=== PATIENT | male | born 1945 | race Caucasian/White ===

== ENCOUNTER 2021-07-17 12:00 | Observation (INO) | payer MEDICARE, OTHER, SELFPAY ==
[2021-07-17] VITALS (13 sets, daily range): BP systolic 130–169; BP diastolic 73–91; PULSE 60–98; RESP 15–21; TEMP 36.5–36.9; O2SAT 94–99; BMI 31.8
--- NOTE | 2021-07-17 12:20 | ED_ITS ---
HPI - Chest Pain General: Chief Complaint: Chest Pain Stated Complaint: Chest Pains SOB Time Seen by Provider: 07/17/21 12:20 History of Present Illness: Mr. Veloz is a 76-year-old gentleman with history of hypertension who presents to the emergency department due to chest discomfort. He reports being at his baseline health with perhaps few intermittent episodes of chest pressure over the past few days. He denies history of similar. Proximately 30 minutes prior to arrival he had sudden onset at rest of pressure in the middle of his chest. There is radiation towards his head and a tingling sensation in bilateral fingertips and what he describes as a numbness in his bilateral lower face. There is radiation of his pain additionally through to his back. Since onset symptoms have persisted. No other specific typical cardiac features. No other specific changes in health, exacerbating, or alleviating factors identified. Onset (ago): minute(s) Timing of current episode: constant Prior episodes: No Onset: during rest Pain location: substernal Pain radiation: back and jaw/teeth Severity: moderate Quality: tightness and heaviness Treatment prior to arrival: none Review of Systems General: Reports: 10 or more systems reviewed and unremarkable except in HPI and below PFSH ED PFSH: Medical History (Updated 07/19/21 @ 00:01 by ) HTN (hypertension) Hypothyroidism Surgical History No significant past surgical history Family History Denies family history of Family history of premature coronary artery disease Physical Exam Const: COMMON NORMALS: patient oriented x3 and alert GENERAL APPEARANCE: cooperative and well developed HENMT: COMMON NORMALS: normocephalic and atraumatic HEAD & SCALP: normocephalic and atraumatic Eye: COMMON NORMALS: conjunctivae normal CONJUNCTIVA: Yes conjunctivae normal SCLERA: sclerae normal Neck/C-Spine: COMMON NORMALS: supple GENERAL: Yes trachea midline Resp: COMMON NORMALS: normal respiratory effort and clear to auscultation bilaterally EFFORT & INSPECTION: Yes able to speak in complete sentences AUSCULTATION: clear to auscultation bilaterally Cardio: COMMON NORMALS: regular rate and regular rhythm RATE: regular rate RHYTHM: regular rhythm GI: COMMON NORMALS: Soft to palpation PALPATION: Yes Soft to palpation and No Tenderness to palpation present (GI) PERCUSSION: normal to percussion Extremity: GENERAL: Yes normal exam except as noted and No edema Neuro: COMMON NORMALS: patient oriented x3, CN's II-XII intact bilaterally, moves all extremities, no focal motor deficits and no sensory deficits noted SENSORIUM/ORIENTATION: Yes alert and No Orientation impaired Psych: COMMON NORMALS: mental status grossly normal and Normal thought process present THOUGHT PROCESS: Normal thought process present Course ED course: - Patient was seen and evaluated by me at bedside - Patient placed on cardiac monitors, IV access obtained - Initial evaluation notable for exam as above - Labs and xrays personally interpreted by me -Aspirin given - Labs notable for leukocytosis, normal hemoglobin. Negative troponin and D- dimer. No acute electrolyte abnormalities symptoms. - Imaging notable for consolidation or pneumothorax - Upon serial reexamination after treatment the patient was similar - Based on patient history, evaluation, and testing as interpreted the most likely cause of the patient's condition is chest pain of uncertain etiology with elevated heart score - The results of ED evaluation were discussed with the patient including possible disposition options. Given moderate risk heart score it is reasonable to perform inpatient stress testing which the patient is more comfortable with as opposed to outpatient follow-up. - Hospitalist service contacted and agreed to the patient to observation for further cardiac evaluation. - Patient was admitted without further deterioration or significant events. Note: Click bubbles or prepopulated beck in note writing are used for assistance with data collection and billing and are inherently more limited than narrative and other text portions of this note. Please use narrative for additional clinical history and defer to narrative/free test for any case of contradictory information. If information appears in only free text or click bubble it should be considered present or absent as reported. Please contact note technical writer and editor for clarifications of clinical information or contradictory information. MDM is a brief summary, contradictory or erroneous seeming information should be clarified and full note should be reviewed. Vital Signs: Vital signs: Vital Signs Temperature 97.7 F 07/18/21 15:41 Pulse Rate 79 07/18/21 15:41 Respiratory Rate 14 07/18/21 15:41 Blood Pressure 137/66 07/18/21 15:41 Pulse Oximetry 99 07/18/21 15:41 MDM - Chest Pain Medical Decision Making 76-year-old gentleman who is moderate risk by HEART score presenting with chest pain. Patient does not typically get chest pain. Negative ED evaluation for any obvious cause. Discussed disposition options, patient uncomfortable with discharge. Admitted for stress testing. Medical Records I reviewed the patient's medical records. Lab Data I reviewed the patient's lab results. : 07/18/21 04:15 07/18/21 04:15 Radiology Impressions Chest X-Ray 07/17/21 12:29 IMPRESSION: No acute findings. Laboratory Results WBC 5.6 10^3/uL (4.0-10.0) 07/17/21 12:29 RBC 4.61 10^6/uL (4.1-5.3) 07/17/21 12:29 Hgb 14.6 g/dL (11.7-16.6) 07/17/21 12:29 Hct 42.9 % (42.0-52.0) 07/17/21 12: MCV 93.1 fl (80-94) 07/17/21 12: MCH 31.7 pg (28.0-34.0) 07/17/21 12:29 MCHC 34.0 g/dL (30.0-36.0) 07/17/21 12: RDW 13.8 % (12.1-15.1) 07/17/21 12:29 Plt Count 275 10^3/cmm (130-400) 07/17/21 12:29 MPV 9.5 fL (7.4-10.4) 07/17/21 12: Neut % (Auto) 47.1 % 07/17/21 12: Lymph % (Auto) 39.2 % 07/17/21 12:29 Lucas % (Auto) 11.1 % 07/17/21 12:29 Eos % (Auto) 2.0 % 07/17/21 12: Baso % (Auto) 0.4 % 07/17/21 12: Neut # (Auto) 2.65 10^3/uL (1.8-7.7) 07/17/21 12: Lymph # (Auto) 2.2 10^3/uL (0.8-4.8) 07/17/21 12:29 Lucas # (Auto) 0.6 10^3/uL (0.2-0.9) 07/17/21 12:29 Eos # (Auto) 0.1 10^3/uL (0.0-0.8) 07/17/21 12:29 Baso # (Auto) 0.0 10^3/uL (0.0-0.1) 07/17/21 12:29 Nucleated RBC % (auto) 0 % 07/17/21 12: Nucleated RBCs # 0.0 /100WBC 07/17/21 12:29 D-Dimer <= 0.27 ug/mIFEU (0-0.59) 07/17/21 13:10 Sodium 139 mmol/L (136-145) 07/17/21 12:29 Potassium 4.0 mmol/L (3.5-5.1) 07/17/21 12: Chloride 103 mmol/L (98-107) 07/17/21 12: Carbon Dioxide 23 mmol/L (22-29) 07/17/21 12:29 Anion Gap 17.0 (5-19) 07/17/21 12:29 BUN 16 mg/dL (8-23) 07/17/21 12:29 Creatinine 0.9 mg/dL (0.7-1.2) 07/17/21 12:29 GFR Calculation Not Reportable 07/17/21 12: Glucose 92 mg/dL (65-115) 07/17/21 12: Calculated Osmolality 289 mOsm/kg (285-295) 07/17/21 12:29 Calcium 9.5 mg/dL (8.5-10.5) 07/17/21 12: Iron 121 ug/dL (59-158) 07/17/21 12: TIBC 279 mcg/dl 07/17/21 12: % Saturation 43.3 % (20-50) 07/17/21 12:29 Unsat Iron Binding 158 ug/dL (112-347) 07/17/21 12:29 Total Bilirubin 0.7 mg/dL (0.15-1.2) 07/17/21 12:29 AST 16 U/L (0-40) 07/17/21 12:29 ALT 19 U/L (0-41) 07/17/21 12:29 Alkaline Phosphatase 84 IU/L (40-130) 07/17/21 12:29 Troponin T Baseline 8 ng/L (0-15) 07/17/21 12:29 Troponin T 120 Minute 8.86 ng/L (0-15) 07/17/21 14:23 Delta Troponin T 0.86 ABS# (0-10) 07/17/21 14:23 NT-Pro-B Natriuret Pep 32 pg/mL (0-450) 07/17/21 12:29 Total Protein 7.1 g/dL (6.6-8.7) 07/17/21 12:29 Albumin 4.6 g/dL (3.5-5.2) 07/17/21 12:29 Globulin 2.5 g/dL (1.3-4.6) 07/17/21 12:29 Lipase 30 U/L (13-60) 07/17/21 12:29 TSH 0.02 uIU/mL (0.27-4.20) L 07/17/21 12:29 Free T4 3.07 ng/dL (0.82-1.77) H 07/17/21 12:29 Free T3 5.2 PG/ML (2.0-4.4) H 07/17/21 12:29 Influenza Type A Ag Negative (Negative) 07/17/21 14:59 Influenza Type B Ag Negative (Negative) 07/17/21 14:59 SARS-CoV-2 Ag (Rapid) Negative (Negative) 07/17/21 14:59 EKG Data EKG 1: I personally reviewed and interpreted this EKG as follows: EKG interpretation date: 07/17/21 EKG interpretation time: 12:20 Interpretation: Twelve-lead EKG shows a regular rhythm at a rate of 84. AK interval 157, QRS duration 107, QTc 412. Normal axis. Interpretation: Sinus rhythm. Nonspecific ST segment abnormalities EKG 2: I personally reviewed and interpreted this EKG as follows: EKG interpretation date: 07/17/21 EKG interpretation time: 13:50 Interpretation: Twelve-lead EKG shows a regular rhythm at a rate of 68. AK interval 168, QRS duration 105, QTc 402. Normal axis. Interpretation: Sinus rhythm. Nonspecific ST segment abnormalities. 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
--- NOTE | 2021-07-17 12:29 | XRR_ITS ---
PROCEDURE INFORMATION: Exam: XR Chest Exam date and time: 07/17/2021 11:34 AM Age: 76 years old Clinical indication: Angina pectoris; Patient HX: Chest pain x 1 day transient dull ache, HX of prostate cancer TECHNIQUE: Imaging protocol: XR of the chest. Views: 1 view. COMPARISON: No relevant prior studies available. FINDINGS: Lungs: Unremarkable. No consolidation. Pleural spaces: Unremarkable. No pleural effusion. No pneumothorax. Heart/Mediastinum: Unremarkable. No cardiomegaly. Bones/joints: Unremarkable. XR/XR chest 1V portable [id number] IMPRESSION: No acute findings.
--- NOTE | 2021-07-17 12:29 | ECG_ITS ---
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 Measurements Intervals [place] Rate: 68 P: 39 DE: 168 QRS: 9 QRSD: 105 T: 15 QT: 384 QTc: 411 Interpretive Statements SINUS RHYTHM Compared to ECG 07/17/2021 12:09:46 No significant changes Electronically Signed On 07-17-2021 20:25:24 CDT by Shan Lira M.D. [email or web address] [email or web address] health.Compass-EOS/store/[id number]
[2021-07-17] MEDS: aspirin 81 mg Chew Tablet 324 MG PO (12:37)
[2021-07-17 12:45] LABS: Basophils % 0.4 %; Eosinophils # 0.1 10^3/uL (0.0-0.8); Hematocrit 42.9 % (42.0-52.0); Hemoglobin 14.6 g/dL (11.7-16.6); Lymphocytes # 2.2 10^3/uL (0.8-4.8); Lymphocytes % 39.2 %; Mean Corpuscular Hemoglobin 31.7 pg (28.0-34.0); Mean Corpuscular Volume 93.1 fl (80-94); Mean Platelet Volume 9.5 fL (7.4-10.4); Monocytes # 0.6 10^3/uL (0.2-0.9); Monocytes % 11.1 %; Neutrophils # 2.65 10^3/uL (1.8-7.7); Neutrophils % 47.1 %; Nucleated Red Blood Cells % 0 %; Platelet Count 275 10^3/cmm (130-400); Red Blood Count 4.61 10^6/uL (4.1-5.3); Red Cell Distribution Width 13.8 % (12.1-15.1); White Blood Count 5.6 10^3/uL (4.0-10.0)
[2021-07-17 13:21] LABS: Troponin(5th) Baseline 8 ng/L (0-15)
[2021-07-17 13:30] LABS: Alanine Aminotransferase 19 U/L (0-41); Albumin Level 4.6 g/dL (3.5-5.2); Alkaline Phosphatase 84 IU/L (40-130); Aspartate Amino Transferase 16 U/L (0-40); Blood Urea Nitrogen 16 mg/dL (8-23); Calcium 9.5 mg/dL (8.5-10.5); Carbon Dioxide 23 mmol/L (22-29); Chloride 103 mmol/L (98-107); Globulin 2.5 g/dL (1.3-4.6); Glucose 92 mg/dL (65-115); Lipase 30 U/L (13-60); NT Pro B Type Natriuretic Pept 32 pg/mL (0-450); Osmolality Calculated 289 mOsm/kg (285-295); Sodium 139 mmol/L (136-145); Total Bilirubin 0.7 mg/dL (0.15-1.2); Total Protein 7.1 g/dL (6.6-8.7)
[2021-07-17 13:48] LABS: D Dimer <= 0.27 ug/mIFEU (0-0.59)
--- NOTE | 2021-07-17 14:29 | ECG_ITS ---
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 Measurements Intervals [place] Rate: 69 P: 39 NM: 164 QRS: 27 QRSD: 107 T: 3 QT: 382 QTc: 411 Interpretive Statements SINUS RHYTHM Compared to ECG 07/17/2021 13:49:15 No significant changes Electronically Signed On 07-17-2021 20:43:13 CDT by Shan Lira M.D. [id number]
[2021-07-17 15:07] LABS: Troponin 5 2HR 8.86 ng/L (0-15)
[2021-07-17 15:28] LABS: Influenza A by IFA Negative (Negative); Influenza B by IFA Negative (Negative)
[2021-07-17 15:29] LABS: SARS Covid-2 Antigen Negative (Negative)
--- NOTE | 2021-07-17 17:06 | PM.HP ---
Providers/Chief Complaint Chief Complaint: Chest Pains SOB History of Present Illness Eduard Veloz is a 76 year old male with past medical history of hypertension, hypothyroidism, lifelong non smoker presented to ER with chest pain which started in AM when patient was reading his paper. Chest pain lasted for 1 hr a/w Nausea and chest heaviness. No dizziness, vomiting, headache. Has been having on and off chest heaviness on exertion from last 1 week. F/h/o CAD in parents with stent at age of 70s. Checks BP at home with usual numbers in 120s-130s mmhg. Review of Systems General: Reports: 10 or more systems reviewed and unremarkable except in HPI and below Const: Denies: fever(s), chills, body aches, change in appetite, change in weight, malaise, night sweats, diaphoresis, change in sleep pattern, daytime sleepiness or snoring Eyes: Denies: change in vision, blurry vision, photophobia, eye discomfort or eye discharge ENMT: Denies: throat pain, enlarged tonsils, hoarseness, mouth pain, oral sores, dry mouth, tinnitus, nasal congestion or post nasal drip Card: Denies: chest pain, palpitations, irregular heart rhythm, edema, swelling of feet/ankles, lightheadedness, syncope, pre-syncope, dyspnea on exertion, orthopnea, leg pain with exertion or acrocyanosis Resp: Denies: dyspnea, productive cough, non-productive cough, wheezing, stridor, pain on inspiration, change in phlegm color, hemoptysis or chest congestion GI: Denies: abdominal pain, nausea, vomiting, hematemesis, coffee ground emesis, dysphagia, heartburn, diarrhea, constipation, bloating, GI cramping, change in bowel habits, pain on defecation, hematochezia or melena : Denies: flank pain, difficulty urinating, dysuria, urinary frequency, urinary urgency, urinary hesitancy, urinary dribbling, difficulty starting urination, change in urine stream, nocturia or hematuria Musc: Denies: neck pain, back pain, extremity pain, joint pain, joint swelling, joint redness, joint stiffness or limited range of motion Neuro: Denies: headache(s), numbness in extremities, weakness in extremities, sensory changes, lack of coordination, difficulty walking, frequent falls, dizziness, vertigo, confusion, Slurred speech present, difficulty communicating thoughts or seizure-like activity Psych: Denies: anxiety, depression, mood swings, panic attacks, hopelessness or irritability Endo: Denies: polyuria, polydipsia, tired all the time, cold intolerance, excessive sweating, flushing or heat intolerance Steven/Lymph: Denies: easy bruising or easy bleeding All/Imm: Denies: tongue swelling, facial swelling or acute wheezing Medications/Allergies Home Medications Medication Instructions Recorded Confirmed Last Taken Type levothyroxine 175 mcg tablet 175 mcg PO QAM 07/17/21 07/17/21 07/17/21 History liothyronine 5 mcg tablet 5 mcg PO QAM 07/17/21 07/17/21 07/17/21 History lisinopril 10 mg tablet 10 mg PO QAM 07/17/21 07/17/21 07/17/21 10:00 History multivitamin 1 tab PO QAM 07/17/21 07/17/21 07/17/21 10:00 History omega-3 fatty acids 1 cap PO QAM 07/17/21 07/17/21 07/17/21 10:00 History omeprazole magnesium 20 mg 20 mg PO QAM 07/17/21 07/17/21 07/17/21 History tablet,delayed release (Prilosec OTC) tadalafil 10 mg tablet 10 mg PO DAILY PRN 07/17/21 07/17/21 Unknown History Allergies Allergy/AdvReac Type Severity Reaction Status Date / Time No Known Allergies Allergy Verified 07/17/21 12:57 PFSH Acute PFSH: Medical History (Updated 07/17/21 @ 17:10 by Vel Sanchez MD) HTN (hypertension) Hypothyroidism Surgical History No significant past surgical history Family History Denies family history of Family history of premature coronary artery disease Vitals/I&O/Wt Last Vital Signs Temp 97.7 F 07/17/21 12:11 Pulse 68 07/17/21 16:36 Resp 15 07/17/21 16:36 BP 149/78 07/17/21 16:36 Pulse Ox 97 07/17/21 16:36 Weight last 48 hrs Weight 100.698 kg Physical Exam Narrative: General: No acute distress, AO x3, pleasant HEENT: PERRLA, pupils bilaterally equal and reactive Chest: Normal vesicular breath sounds, no added sounds, equal good air entry bilaterally CVS: S1-S2 regular, ESM at aortic region, no tachycardia, no gallops, no rubs Abdomen: Soft, nontender, no organomegaly, bowel sounds present Neuro: No focal deficits, no facial deformity, AO x3, power 5/5 in all limbs Data : 07/17/21 12:29 07/17/21 12:29 A&P Assessment and plan (1) Chest pain: Status: Acute (2) HTN (hypertension): Status: Acute (3) Hypothyroidism: Status: Acute Plan Chest pain under evaluation: Cycle troponins, check echocardiogram, A1c, lipid panel. Received aspirin 324 mg in the ER. For now 81 mg daily. Statin as per lipid panel. N.p.o. after midnight. Lexiscan to rule out ischemic cause. Famotidine twice daily, Zofran as needed. Hypertension: Goal blood pressure less than 140/90 mmHg. Continue with home dose of lisinopril. Check iron panel, TSH. Full code. Cardiac diet, n.p.o. after midnight. Lovenox for DVT prophylaxis. Attestations Medical Necessity Statement*: Admitted under observation for further evaluation of chest pain while ischemia is ruled out Time Spent in Patient Care: Greater than 35 minutes Coding Level of Care Code Acute Director Of The [employer] [facility] for [facility] Fwd Diagnoses Chest pain R07.9 HTN (hypertension) I10 Hypothyroidism E03.9
[2021-07-17 17:09] LABS: Troponin 5 2HR Delta 0.86 ABS# (0-10)
--- NOTE | 2021-07-17 18:04 | ECG_ITS ---
[facility] Test Date: 2021-07-18 Pat Name: Eduard Veloz Department: Room: ICU06 Gender: Male Estate Administrator: Elissa Bowen : 1945 Requested By: Vel Sanchez Order Number: [id number] Ebony MD: Melly Morgan M.D. Interpretive Statements NAME OF STUDY: LEXISCAN SESTAMIBI STRESS TEST INDICATION: Chest Pain PROCEDURE: At the baseline, the blood pressure was 126/73 mmHg, oxygen saturation 98% with a heart rate of 71 bpm. The electrocardiogram showed normal sinus rhythm, right axis deviation. Nonspecific T wave inversion in lead III and aVF. Poor anterior R wave progression. The Lexiscan was infused over a period of 20 seconds. A total of 0.4 milligrams of Lexiscan was infused. The stress phase was continued for a total of 5 minutes. Heart rate at the end of the stress phase was 85 bpm, oxygen saturation 98% with a blood pressure of 116/62 mmHg. The EKG at the peak infusion revealed sinus rhythm with no significant ST-T wave changes. Sestamibi was injected 20 seconds after the Lexiscan infusion. Blood pressure at the end of the recovery phase was 111/64 mmHg, oxygen saturation 96% with a heart rate of 90 beats per minute. CONCLUSION: 1. No significant EKG changes with the LexiScan infusion. 2. No LexiScan induced chest pain or cardiac arrhythmia. 3. Normal blood pressure and heart rate response. 4. Sestamibi/sestamibi perfusion scan pending; see separate report. Electronically Signed On 07-18-2021 17:12:27 CDT by Melly Morgan M.D. [email or web address] Con [id number]
--- NOTE | 2021-07-17 18:04 | USCV_ITS ---
Eduard Veloz Age: 76 Gender: M : 1945 Exam Date: 07/17/2021 20:37 Ordering Phys: Vel Sanchez MD Technologist: RANDALL Exam Location: [facility] [place] Indication: Hypertension, chest pain BP: 130 / 56 HR: 69 Rhythm: Sinus Technical Quality: Adequate MEASUREMENTS (Male / Female) Normal Values 2D ECHO LV Diastolic Diameter PLAX 3.8 cm 4.2 - 5.9 / 3.9 - 5.3 cm LV Systolic Diameter PLAX 2.3 cm IVS Diastolic Thickness 1.7 cm 0.6 - 1.0 / 0.6 - 0.9 cm IVS Systolic Thickness 1.8 cm LVPW Diastolic Thickness 1.7 cm 0.6 - 1.0 / 0.6 - 0.9 cm LVPW Systolic Thickness 2.3 cm LVOT Diameter 2.0 cm LV Ejection Fraction 2D Teich 69.9 % LV Ejection Fraction MOD 2C 43.3 % LV Ejection Fraction 2C AL 45.4 % LA Diameter 3.7 cm LA Width 3.5 cm LA Height 4.0 cm RA Width 3.4 cm RA Height 4.5 cm Aorta at Sinotubular Diameter 2.9 cm M-MODE Aortic Annulus Diameter 3.6 cm LA Ao Ratio MM 1.1 MV E Point Septal Separation 1.4 cm DOPPLER AV Peak Velocity 151.0 cm/s LVOT Peak Velocity 102.0 cm/s AV Area Cont Eq vti 2.4 cm squared AV Area Cont Eq pk 2.2 cm squared MV Area PHT 2.8 cm squared Mitral E to A Ratio 0.7 MV E' Velocity 36.5 cm/s Mitral E to MV E' Ratio 7.5 Mitral E to LV E' Lateral Ratio 6.8 Mitral E to LV E' Septal Ratio 8.4 TR Peak Velocity 289.6 cm/s TR Peak Gradient 33.6 mmHg TR Mean Velocity 232.4 cm/s TR Mean Gradient 23.8 mmHg TR Velocity Time Integral 81.6 cm PV Peak Velocity 136.0 cm/s RV Acceleration Time 0.1 s RV Ejection Time 0.3 s RV AcT/ET 0.2 FINDINGS Left Ventricle Normal left ventricular size, systolic function and wall thickness, with no regional wall motion abnormalities. Left ventricular ejection fraction is estimated at 60 %. Normal diastolic function. Right Ventricle Normal right ventricular size and systolic function, RVSP 34 mmHg. Right Atrium Normal right atrial size. Left Atrium Normal left atrial size. Mitral Valve Mildly thickened mitral valve. No mitral valve stenosis. No mitral valve regurgitation. Aortic Valve Structurally normal trileaflet aortic valve. No aortic valve stenosis. No aortic valve regurgitation. Tricuspid Valve Structurally normal tricuspid valve. Trace to mild tricuspid valve regurgitation. Pulmonic Valve Structurally normal pulmonic valve. No pulmonary valve stenosis. Trace pulmonary valve regurgitation. Pericardium No pericardial effusion. Aorta Normal size aortic root and proximal ascending aorta. CONCLUSIONS 1. Normal left ventricular size, systolic function and wall thickness, with no regional wall motion abnormalities. Left ventricular ejection fraction is estimated at 60 %. Normal diastolic function. 2. Normal right ventricular size and systolic function. 3. Trace to mild tricuspid valve regurgitation. 4. Pulmonary artery pressure estimated at 34 mmHg. 5. No prior similar studies to compare. Melly Morgan MD (Electronically Signed) Final Date: 18 July 2021 14:49 S
--- NOTE | 2021-07-17 18:07 | PC.NURSE ---
To ICU via wheelchair, transferred from chair to bed was unsteady. Patient AAOX4, VSS.
[2021-07-17] MEDS: enoxaparin 40 mg/0.4 mL Syringe SUBCUT (18:27)
[2021-07-17] MEDS: famotidine 20 mg Tablet PO (18:27)
--- NOTE | 2021-07-17 18:29 | ECG_ITS ---
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 Measurements Intervals [place] Rate: 84 P: 63 MA: 157 QRS: 61 QRSD: 107 T: 26 QT: 371 QTc: 440 Interpretive Statements SINUS RHYTHM No previous ECG available for comparison Electronically Signed On 07-17-2021 20:30:41 CDT by Shan Lira M.D. [email or web address] [place]/store/[id number]
[2021-07-17 18:37] LABS: Thyroid Stimulating Hormone 0.02 uIU/mL (0.27-4.20)
[2021-07-17 18:49] LABS: Iron 121 ug/dL (59-158); Percent Saturation 43.3 % (20-50); Total Iron Binding Capacity 279 mcg/dl; Unsaturated Iron Binding 158 ug/dL (112-347)
--- NOTE | 2021-07-17 19:14 | PC.NURSE ---
Murmur noted over lower abdomen during admission assessment, no palpable mass or pain noted. Dr. Sanchez notified. Echo already ordered.
[2021-07-17 19:23] LABS: Troponin 5 6HR 7.71 ng/L (0-15)
[2021-07-17 19:39] LABS: Troponin 5 6HR Delta -0.29 ng/L (0-12)
[2021-07-17 20:27] LABS: Free T4 Free Thyroxine 3.07 ng/dL (0.82-1.77); T3 Free 5.2 PG/ML (2.0-4.4)
[2021-07-18] VITALS (10 sets, daily range): BP systolic 109–160; BP diastolic 64–83; PULSE 60–95; RESP 10–19; TEMP 36.3–36.6; O2SAT 93–99
[2021-07-18 05:11] LABS: Basophils % 0.5 %; Eosinophils # 0.1 10^3/uL (0.0-0.8); Eosinophils % 2.2 %; Hematocrit 41.6 % (42.0-52.0); Hemoglobin 14.2 g/dL (11.7-16.6); Lymphocytes # 1.9 10^3/uL (0.8-4.8); Mean Corpuscular HGB Conc 34.1 g/dL (30.0-36.0); Mean Corpuscular Hemoglobin 31.9 pg (28.0-34.0); Mean Corpuscular Volume 93.5 fl (80-94); Mean Platelet Volume 9.7 fL (7.4-10.4); Monocytes # 0.7 10^3/uL (0.2-0.9); Monocytes % 11.9 %; Neutrophils # 3.03 10^3/uL (1.8-7.7); Neutrophils % 52.2 %; Nucleated Red Blood Cells % 0 %; Platelet Count 260 10^3/cmm (130-400); Red Blood Count 4.45 10^6/uL (4.1-5.3); Red Cell Distribution Width 13.9 % (12.1-15.1); White Blood Count 5.8 10^3/uL (4.0-10.0)
[2021-07-18 05:22] LABS: Estmated Average Glucose 103; Hemoglobin A1C 5.2 % (4.0-6.0)
[2021-07-18 05:32] LABS: Chol HDL Ratio 3.38 mg/dL (1.0-5.00); Cholesterol 189 mg/dL (0-200); HDL Cholesterol 56 mg/dL (60-100); LDL Cholesterol Calculated 109 mg/dL (50-129); Triglycerides 118 mg/dL (0-150); VLDL Cholestrol Calculation 24 mg/dL (0-30)
[2021-07-18 05:33] LABS: Alanine Aminotransferase 16 U/L (0-41); Albumin Level 4.2 g/dL (3.5-5.2); Alkaline Phosphatase 83 IU/L (40-130); Anion Gap 14.3 (5-19); Aspartate Amino Transferase 16 U/L (0-40); Blood Urea Nitrogen 14 mg/dL (8-23); Calcium 9.8 mg/dL (8.5-10.5); Carbon Dioxide 26 mmol/L (22-29); Chloride 104 mmol/L (98-107); Globulin 2.7 g/dL (1.3-4.6); Glucose 98 mg/dL (65-115); Magnesium 1.8 mg/dL (1.7-2.3); Osmolality Calculated 290 mOsm/kg (285-295); Phosphorus 3.4 mg/dL (2.5-4.5); Potassium 4.3 mmol/L (3.5-5.1); Sodium 140 mmol/L (136-145); Total Bilirubin 0.9 mg/dL (0.15-1.2); Total Protein 6.9 g/dL (6.6-8.7)
[2021-07-18] MEDS: lisinopril 10 mg Tablet PO (05:48)
[2021-07-18] MEDS: regadenoson 0.4 Mg/5 ml Syringe IVP (07:51)
[2021-07-18] MEDS: famotidine 20 mg Tablet PO (09:48)
--- NOTE | 2021-07-18 15:05 | P.DS_ITS ---
Discharge Providers Date of Admission: 07/17/21 16:45 Date of Discharge: July 18, 2021 Attending Provider at Admission: Vel Sanchez MD Attending Provider at Discharge: Vel Sanchez MD Diagnoses at Discharge Discharge Diagnosis (1) Chest pain: Status: Acute (2) HTN (hypertension): Status: Acute (3) Hypothyroidism: Status: Acute Reason for Visit Reason for Visit: Chest Pains SOB Hospital Course Hospital Course Eduard Veloz is a 76 year old male with past medical history of hypertension, hypothyroidism, lifelong non smoker presented to ER with chest pain which started in AM when patient was reading his paper. Chest pain lasted for 1 hr a/w Nausea and chest heaviness. No dizziness, vomiting, headache. Has been having on and off chest heaviness on exertion from last 1 week. F/h/o CAD in parents with stent at age of 70s. Checks BP at home with usual numbers in 120s-130s mmhg. patient referred to the hospital further evaluation of chest pain. He underwent Lexiscan stress test which was negative for any acute ischemia. Echocardiogram was done which showed normal EF without regional wall motion abnormality. PASP 34 mmHg. During hospitalization he was found to have abnormal thyroid functions for which his home dose of levothyroxine and liothyronine adjusted. He was found to have elevated blood pressures for which his home dose of lisinopril was adjusted. Discharge hemodynamically stable condition advised to follow-up with his primary care provider within next 1 week. Physical Exam Narrative: General: No acute distress, AO x3, pleasant HEENT: PERRLA, pupils bilaterally equal and reactive Chest: Normal vesicular breath sounds, no added sounds, equal good air entry bilaterally CVS: S1-S2 regular, ESM at aortic region, no tachycardia, no gallops, no rubs Abdomen: Soft, nontender, no organomegaly, bowel sounds present Neuro: No focal deficits, no facial deformity, AO x3, power 5/5 in all limbs Discharge Data Studies Completed and Pending Completed Studies During Hospitalization Category Date Time Status Sestamibi Stress Test Request Urgent Exams 07/17/21 18:04 Draft XR chest 1V portable [id number] Stat Exams 07/17/21 12:29 Completed NM bharath perf SPECT r/s* [id number] Routine Nuc Med 07/18/21 18:04 Completed CV. echo complete* [id number] Routine Ultrasound 07/17/21 18:04 Completed Radiology Impressions Chest X-Ray 07/17/21 12:29 IMPRESSION: No acute findings. Lexiscan stress test ?PERFUSION FINDINGS ?Small sized perfusion abnormality of mild severity of apical inferior and?apical lateral wall on rest and supine stress images images with somewhat?improved tracer uptake in inferior wall on prone stress images. ?FUNCTIONAL RESULTS ? ? (calculated via Gated SPECT) ? Stress Image LV EF (%):? ? 59 ? Stress EDV (mL):145? TID:? 0.94 ? Stress ESV (mL):60 ?FUNCTIONAL FINDINGS: ?The left ventricle is normal in size. Transient Ischemia Dilatation of 0.94. ?There is normal left ventricular systolic function. ?The left ventricular ejection fraction is normal with a value of 59%. ?There is normal left ventricular wall thickening with no regional wall motion?abnormality. ?Increased end-diastolic volume. ?IMPRESSIONS ?1. Small sized perfusion abnormality of mild severity of apical inferior and?apical lateral wall with? improved tracer uptake in apical inferior wall on?prone stress images. ?2. These findings may represent attenuation artifact or old myocardial?infarction. ?3. Overall left ventricular systolic function is normal without regional wall?motion abnormalities. ?4. The left ventricular ejection fraction is normal with a value of 59%. ?5. No coronary ischemia based on the study.? Refer to separate report for EKG?portion of the study. ?Melly Morgan MD ?(Electronically Signed) ?Final Date:? ? ? 18 July 2021 ? 14:25 Echocardiogram: ?CONCLUSIONS ?1. Normal left ventricular size, systolic function and wall?thickness, with no regional wall motion abnormalities. Left?ventricular ejection fraction is estimated at 60 %. Normal?diastolic function. ?2. Normal right ventricular size and systolic function. ?3. Trace to mild tricuspid valve regurgitation. ?4.? Pulmonary artery pressure estimated at 34 mmHg.? ?5. No prior similar studies to compare. ?Melly Morgan MD ?(Electronically Signed) ?Final Date:? ? ? 18 July 2021 ? 14:49 S Laboratory Results WBC 5.8 10^3/uL (4.0-10.0) 07/18/21 04:15 RBC 4.45 10^6/uL (4.1-5.3) 07/18/21 04:15 Hgb 14.2 g/dL (11.7-16.6) 07/18/21 04:15 Hct 41.6 % (42.0-52.0) L 07/18/21 04:15 MCV 93.5 fl (80-94) 07/18/21 04:15 MCH 31.9 pg (28.0-34.0) 07/18/21 04:15 MCHC 34.1 g/dL (30.0-36.0) 07/18/21 04:15 RDW 13.9 % (12.1-15.1) 07/18/21 04:15 Plt Count 260 10^3/cmm (130-400) 07/18/21 04:15 MPV 9.7 fL (7.4-10.4) 07/18/21 04:15 Neut % (Auto) 52.2 % 07/18/21 04:15 Lymph % (Auto) 33.0 % 07/18/21 04:15 Letcher % (Auto) 11.9 % 07/18/21 04:15 Eos % (Auto) 2.2 % 07/18/21 04:15 Baso % (Auto) 0.5 % 07/18/21 04:15 Neut # (Auto) 3.03 10^3/uL (1.8-7.7) 07/18/21 04:15 Lymph # (Auto) 1.9 10^3/uL (0.8-4.8) 07/18/21 04:15 Letcher # (Auto) 0.7 10^3/uL (0.2-0.9) 07/18/21 04:15 Eos # (Auto) 0.1 10^3/uL (0.0-0.8) 07/18/21 04:15 Baso # (Auto) 0.0 10^3/uL (0.0-0.1) 07/18/21 04:15 Nucleated RBC % (auto) 0 % 07/18/21 04:15 Nucleated RBCs # 0.0 /100WBC 07/18/21 04:15 D-Dimer <= 0.27 ug/mIFEU (0-0.59) 07/17/21 13:10 Sodium 140 mmol/L (136-145) 07/18/21 04:15 Potassium 4.3 mmol/L (3.5-5.1) 07/18/21 04:15 Chloride 104 mmol/L (98-107) 07/18/21 04:15 Carbon Dioxide 26 mmol/L (22-29) 07/18/21 04:15 Anion Gap 14.3 (5-19) 07/18/21 04:15 BUN 14 mg/dL (8-23) 07/18/21 04:15 Creatinine 0.8 mg/dL (0.7-1.2) 07/18/21 04:15 GFR Calculation Not Reportable 07/18/21 04:15 Glucose 98 mg/dL (65-115) 07/18/21 04:15 Estimat Average Glucose 103 07/18/21 04:15 Hemoglobin A1c 5.2 % (4.0-6.0) 07/18/21 04:15 Calculated Osmolality 290 mOsm/kg (285-295) 07/18/21 04:15 Calcium 9.8 mg/dL (8.5-10.5) 07/18/21 04:15 Phosphorus 3.4 mg/dL (2.5-4.5) 07/18/21 04:15 Magnesium 1.8 mg/dL (1.7-2.3) 07/18/21 04:15 Iron 121 ug/dL (59-158) 07/17/21 12:29 TIBC 279 mcg/dl 07/17/21 12:29 % Saturation 43.3 % (20-50) 07/17/21 12:29 Unsat Iron Binding 158 ug/dL (112-347) 07/17/21 12:29 Total Bilirubin 0.9 mg/dL (0.15-1.2) 07/18/21 04:15 AST 16 U/L (0-40) 07/18/21 04:15 ALT 16 U/L (0-41) 07/18/21 04:15 Alkaline Phosphatase 83 IU/L (40-130) 07/18/21 04:15 Troponin T Baseline 8 ng/L (0-15) 07/17/21 12:29 Troponin T 120 Minute 8.86 ng/L (0-15) 07/17/21 14:23 Delta Troponin T 0.86 ABS# (0-10) 07/17/21 14:23 Troponin T Hi Sens 6Hr 7.71 ng/L (0-15) 07/17/21 18:34 Troponin T Hi Sens 6Hr Delta -0.29 ng/L (0-12) L 07/17/21 18:34 NT-Pro-B Natriuret Pep 32 pg/mL (0-450) 07/17/21 12:29 Total Protein 6.9 g/dL (6.6-8.7) 07/18/21 04:15 Albumin 4.2 g/dL (3.5-5.2) 07/18/21 04:15 Globulin 2.7 g/dL (1.3-4.6) 07/18/21 04:15 Triglycerides 118 mg/dL (0-150) 07/18/21 04:15 Cholesterol 189 mg/dL (0-200) 07/18/21 04:15 LDL Cholesterol, Calc 109 mg/dL (50-129) 07/18/21 04:15 Total VLDL Cholesterol 24 mg/dL (0-30) 07/18/21 04:15 HDL Cholesterol 56 mg/dL (60-100) L 07/18/21 04:15 Cholesterol/HDL Ratio 3.38 mg/dL (1.0-5.00) 07/18/21 04:15 Lipase 30 U/L (13-60) 07/17/21 12:29 TSH 0.02 uIU/mL (0.27-4.20) L 07/17/21 12:29 Free T4 3.07 ng/dL (0.82-1.77) H 07/17/21 12:29 Free T3 5.2 PG/ML (2.0-4.4) H 07/17/21 12:29 Influenza Type A Ag Negative (Negative) 07/17/21 14:59 Influenza Type B Ag Negative (Negative) 07/17/21 14:59 SARS-CoV-2 Ag (Rapid) Negative (Negative) 07/17/21 14:59 Vitals Last Vital Signs Temp 97.9 F 07/18/21 04:00 Pulse 79 07/18/21 14:00 Resp 18 07/18/21 12:00 BP 160/77 07/18/21 12:00 Pulse Ox 94 07/18/21 12:00 Discharge Plan Discharge Patient Disposition: Home Condition: Stable Prescriptions: Continued multivitamin Tablet 1 tab PO QAM 0RF levothyroxine 175 mcg tablet 175 mcg PO QAM 0RF Fish Oil Capsule 1 cap PO QAM 0RF Prilosec OTC 20 mg Tablet,Delayed Release (Dr/Ec) 20 mg PO QAM 0RF tadalafil 10 mg tablet 10 mg PO DAILY PRN (Reason: Erectile Dysfunction) 0RF Changed lisinopril 10 mg tablet 20 mg PO QAM Qty: 0 0RF Discontinued liothyronine 5 mcg tablet 5 mcg PO QAM 0RF Discharge Orders: Discharge Order (Routine); Ordered 07/18/21 Ordered By: Vel Sanchez Discharge Diet: Cardiac Discharge Activity: Resume usual activity Patient Instructions: Opioid Safety Activity Restrictions/Additional Instructions: Follow-up with your primary care provider within next 1 week. Your dose of lisinopril has been increased to 20 mg daily. Leothyroninne has been stopped. Please check blood pressure daily at home and maintain a blood pressure diary and follow-up with your primary care provider within next 1 week for repeat BMP and adjustment of antihypertensives. Should get thyroid panel rechecked within next 1 month. Discharge Attestations Time Spent in Discharge Care*: greater than 30 min Specific Discharge Activities: educating patient, educating and/or supporting family/caregiver, discussing with pcp/other providers, discussing with window caser/social workers/dc planners, documenting/other paperwork and evaluating patient/reviewing data Status at Discharge: Cognitive status at discharge: cognitively intact , Behavioral status at discharge: cooperative , Functional status at discharge: independent ambulation , Overall status at discharge: patient is back to baseline Quality Metrics Clinical Quality Measures [ No reported AMI, CVA or VTE this stay] Coding Level of Care Code Acute Chg FW DC note Diagnoses Chest pain R07.9 HTN (hypertension) I10 Hypothyroidism E03.9
--- NOTE | 2021-07-18 16:21 | PC.NURSE ---
Discharge instructions provided. Only available appt. with PCP is tomorrow, Pt okay'd. Pt to front entrance via W/C, discharged home in POV.
--- NOTE | 2021-07-18 18:04 | NMCV_ITS ---
NM bharath perf SPECT r/s* [id number] Eduard Veloz Age: 76 Gender: M : 1945 Exam Date: 07/18/2021 07:07 Ordering Phys: Vel Sanchez MD Technologist: MOE Jorge Exam Location: [facility] Indications: CHEST PAIN STRESS TEST Please see separate stress test report in [facility] for full findings IMAGE PROTOCOL Rest/Stress 1 Lexiscan Day Radiopharmaceutical Dose (mCi) Administration Site Administered by Rest: Tc-99m 11.0 IV MOE Live Sestamibi Stress:Tc-99m 33.0 IV MOE Live Sestamibi Rest: 18-Jul-2021 60 Discovery 630 Stress: 18-Jul-2021 30 Discovery 630 0.4mg Lexiscan. Images obtained in supine and prone position. SPECT RESULTS Technical Quality: Excellent Raw Data Analysis: Normal Image Corrections: No attenuation or motion correction applied Summed Stress Score: 2 Summed Rest Score: 3 Summed Difference Score: 0 PERFUSION FINDINGS Small sized perfusion abnormality of mild severity of apical inferior and apical lateral wall on rest and supine stress images images with somewhat improved tracer uptake in inferior wall on prone stress images. FUNCTIONAL RESULTS (calculated via Gated SPECT) Stress Image LV EF (%): 59 Stress EDV (mL):145 TID: 0.94 Stress ESV (mL):60 FUNCTIONAL FINDINGS: The left ventricle is normal in size. Transient Ischemia Dilatation of 0.94. There is normal left ventricular systolic function. The left ventricular ejection fraction is normal with a value of 59%. There is normal left ventricular wall thickening with no regional wall motion abnormality. Increased end-diastolic volume. IMPRESSIONS 1. Small sized perfusion abnormality of mild severity of apical inferior and apical lateral wall with improved tracer uptake in apical inferior wall on prone stress images. 2. These findings may represent attenuation artifact or old myocardial infarction. 3. Overall left ventricular systolic function is normal without regional wall motion abnormalities. 4. The left ventricular ejection fraction is normal with a value of 59%. 5. No coronary ischemia based on the study. Refer to separate report for EKG portion of the study. Melly Morgan MD (Electronically Signed) Final Date: 18 July 2021 14:25 S
== END 2021-07-18 16:15 | disposition home or self-care (01) ==
LOC: ER 17:08 → ICU 18:25
PROVIDERS: Admitting Provider Student in an Organized Health Care Education/Training Program; Emergency Provider Emergency Medicine; Visit Provider Student in an Organized Health Care Education/Training Program
DX: R07.89 Other chest pain (principal); I10 Essential (primary) hypertension; E03.9 Hypothyroidism, unspecified; F17.210 Nicotine dependence, cigarettes, uncomplicated; Z82.49 Family history of ischemic heart disease and other diseases of the circulatory system
CPT/HCPCS: 36415; 71045; 78452; 80053; 80061; 83036; 83540; 83550; 83690; 83735; 83880; 84100; 84439; 84443; 84481; 84484; 85025; 85378; 87426; 87804; 93005; 93017; 93306; 96372; 99285; A9500; G0378; J1650; J2785

== ENCOUNTER → 2021-11-30 10:35 | Outpatient (BNVA) | payer MEDICARE, OTHER, SELFPAY | PROVIDERS: PCP Family Medicine; Visit Provider Family Medicine | DX: E03.9 Hypothyroidism, unspecified (principal); L84 Corns and callosities; I10 Essential (primary) hypertension | CPT/HCPCS: 84439; 84443; 84481 ==

== ENCOUNTER → 2022-01-15 09:53 | Outpatient (BNVA) | payer MEDICARE, OTHER, SELFPAY | PROVIDERS: PCP Family Medicine; Referring Provider Family Medicine; Visit Provider Podiatrist Foot & Ankle Surgery | DX: L60.3 Nail dystrophy (principal); L60.8 Other nail disorders | CPT/HCPCS: 99203 ==

== ENCOUNTER → 2022-02-01 09:11 | Outpatient (BNVA) | payer MEDICARE, OTHER, SELFPAY | PROVIDERS: PCP Family Medicine; Visit Provider Podiatrist Foot & Ankle Surgery | DX: L60.0 Ingrowing nail (principal) | CPT/HCPCS: 11750 ==

== ENCOUNTER → 2022-02-22 08:25 | Outpatient (BNVA) | payer MEDICARE, OTHER, SELFPAY | PROVIDERS: PCP Family Medicine; Visit Provider Podiatrist Foot & Ankle Surgery | DX: L60.0 Ingrowing nail (principal) | CPT/HCPCS: 99213 ==

== ENCOUNTER 2022-05-08 07:08 | Emergency (ER) | payer MEDICARE, OTHER, SELFPAY ==
[2022-05-08 07:11] VITALS: BP 184/93; PULSE 67; RESP 18; TEMP 36.4; O2SAT 99; BMI 32.5
--- NOTE | 2022-05-08 07:25 | CTR_ITS ---
PROCEDURE INFORMATION: Exam: CT Abdomen And Pelvis Without Contrast Exam date and time: 05/08/2022 7:41 AM Age: 76 years old Clinical indication: Abdominal pain; Flank; Right; Prior surgery; Surgery type: Hernia, prostatectomy; Patient HX: HX of prostate cancer; Additional info: Right flank pain TECHNIQUE: Imaging protocol: Computed tomography of the abdomen and pelvis without contrast. Radiation optimization: All CT scans at this facility use at least one of these dose optimization techniques: automated exposure control; mA and/or kV adjustment per patient size (includes targeted exams where dose is matched to clinical indication); or iterative reconstruction. COMPARISON: CR XR chest 1V portable [id number] 07/17/2021 11:34 AM RADIATION DOSE METRICS: Total DLP (mGy-cm): 925.33 FINDINGS: Diaphragm: Small hiatal hernia. Liver: Normal. No mass. Gallbladder and bile ducts: Normal. No calcified stones. No ductal dilation. Pancreas: Coarse calcifications in the pancreatic parenchyma, which may reflect sequela chronic pancreatitis. Spleen: Normal. No splenomegaly. Adrenal glands: Normal. No mass. Kidneys and ureters: Bilateral renal cysts. Bilateral nonobstructing renal calculi measuring up to 3 mm on the right and 3 mm on the left. No hydronephrosis. Stomach and bowel: Unremarkable. No obstruction. No mucosal thickening. Appendix: No evidence of appendicitis. Intraperitoneal space: Unremarkable. No free air. No significant fluid collection. Vasculature: Unremarkable. No abdominal aortic aneurysm. Lymph nodes: Bilateral pelvic sidewall lymph node dissection. Urinary bladder: Unremarkable as visualized. Reproductive: Prostatectomy. Bones/joints: Unremarkable. No acute fracture. Soft tissues: Unremarkable. CT/CT kidney stone [id number] IMPRESSION: No acute findings. COMMENTS: Consistent with the [employer]'s Incidental Findings Committee white paper (J Am Carlitos Radiol 2018): Any incidental renal lesion less than 1 cm or classified as too small to characterize, or any incidental cystic renal lesion characterized as simple-appearing, is likely benign. No follow-up imaging is recommended for these lesions per consensus recommendations based on imaging criteria.
--- NOTE | 2022-05-08 07:26 | W.ED.MALEGU ---
Documented by User: DONNY Dang 05/09/22 07:14 HPI - Male Genitourinary General: Chief complaint: Urogenital-Male Stated complaint: urinary pain Time Seen by Provider: 05/08/22 07:20 History of Present Illness: Patient is a 76-year-old male comes to the ED with right flank pain. Patient has a history of kidney stones and says this pain seems like his past kidney stones. Pain originally started about 2 weeks ago and was more mild. Pain worsened approximately 2 days ago and has not improved. He rates his current pain a 8 out of 10. Denies any fevers, emesis, dysuria or hematuria. Associated symptoms: Deny dysuria, hematuria, nausea or vomiting Review of Systems Const: Denies: fever(s), chills or fatigue Eyes: Denies: change in vision or eye discomfort ENMT: Denies: throat pain, odynophagia, nasal discharge or nasal congestion Card: Denies: chest pain, palpitations, edema, swelling of feet/ankles, dyspnea on exertion or orthopnea Resp: Denies: dyspnea, productive cough or non-productive cough GI: Denies: abdominal pain, nausea, vomiting, diarrhea, constipation or hematochezia : Reports: flank pain; Denies: difficulty urinating, dysuria or hematuria Musc: Denies: neck pain, back pain or extremity swelling Skin/Breast: Denies: rash or new lesions Neuro: Denies: headache(s), numbness in extremities or weakness in extremities PFSH ED PFSH: Medical History Fracture of left leg s/p 2 screws in lower left leg HTN (hypertension) Hypothyroidism Surgical History History of hernia repair Bilateral inguinal hernia repair History of prostatectomy Hx of cataract extraction Hx of tonsillectomy No significant past surgical history Family History Denies family history of Family history of premature coronary artery disease Social History Smoking and tobacco status: never smoked Alcohol intake: never Marital status: Additional social history: 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 Physical Exam Const: COMMON NORMALS: patient oriented x3 and alert GENERAL APPEARANCE: cooperative; not comfortable (Patient appears uncomfortable and in some pain.) HENMT: COMMON NORMALS: normocephalic HEAD & SCALP: normocephalic MOUTH: Normal oral and palatal mucosa present THROAT: posterior oropharynx normal and uvula midline Neck/C-Spine: COMMON NORMALS: supple GENERAL: Yes normal visual inspection Resp: COMMON NORMALS: normal respiratory effort, No retractions, No use of accessory muscles and clear to auscultation bilaterally AUSCULTATION: clear to auscultation bilaterally Cardio: COMMON NORMALS: regular rate, regular rhythm, S1 normal heart sound present, S2 normal heart sound present, No gallops present (Cardio), No clicks present (Cardio), No murmurs present (Cardio) and Peripheral pulses 2+ throughout RATE: regular rate RHYTHM: regular rhythm HEART SOUNDS: S1 normal heart sound present and S2 normal heart sound present PERIPHERAL PULSES: Peripheral pulses 2+ throughout GI: COMMON NORMALS: Normal to inspection, nondistended, normoactive bowel sounds present, Soft to palpation, non-tender and no masses PALPATION: Yes Soft to palpation : BLADDER/KIDNEY EXAM: Yes CVA tenderness on the right Back/Pelvis: GENERAL BACK: Yes CVA tenderness Extremity: COMMON NORMALS: normal to inspection Neuro: COMMON NORMALS: patient oriented x3 SENSORIUM/ORIENTATION: Yes alert GAIT: Yes Normal gait present Skin: GENERAL SKIN EXAM: dry skin Course Vital Signs: Vital signs: Vital Signs Temperature 97.5 F L 05/08/22 07:11 Pulse Rate 55 L 05/08/22 10:16 Respiratory Rate 18 05/08/22 08:09 Blood Pressure 145/92 05/08/22 10:16 Pulse Oximetry 97 05/08/22 10:16 Oxygen Delivery Me thod 05/08/22 10:16 [facility] - Male Medical Decision Making Patient is a 76-year-old male comes to the ED with right flank pain. Patient has a history of kidney stones and says this pain seems like his past kidney stones. Pain originally started about 2 weeks ago and was more mild. Pain worsened approximately 2 days ago and has not improved. He rates his current pain a 8 out of 10. Denies any fevers, emesis, dysuria or hematuria. Vital stable. Exam shows some mild right CVA tenderness. Rest of exam is benign. CBC and CMP are unremarkable. UA unremarkable and shows no blood in urine. CT of abdomen pelvis shows no acute findings. Patient's pain was controlled with a dose of IV morphine. He was comfortable and stable for discharge home. He was diagnosed with right flank pain, which is likely muscular after ruling out acute causes such as UTI, kidney stones or bowel obstruction. discharged home with a prescription for muscle relaxer and NSAID to help treat symptoms. Told to follow-up with PCP in the next week for reevaluation. Return to ED precautions given. Patient understood and agreed with plan. Lab Data I reviewed the patient's lab results. 05/08/22 07:38 05/08/22 07:38 Radiology Impressions Abdomen/Pelvis CT 05/08/22 07:25 IMPRESSION: No acute findings. COMMENTS: Consistent with the [employer]'s Incidental Findings Committee white paper (J Am Carlitos Radiol 2018): Any incidental renal lesion less than 1 cm or classified as too small to characterize, or any incidental cystic renal lesion characterized as simple-appearing, is likely benign. No follow-up imaging is recommended for these lesions per consensus recommendations based on imaging criteria. Laboratory Results WBC 5.4 10^3/uL (4.0-10.0) 05/08/22 07:38 RBC 4.84 10^6/uL (4.1-5.3) 05/08/22 07:38 Hgb 15.4 g/dL (11.7-16.6) 05/08/22 07:38 Hct 45.3 % (42.0-52.0) 05/08/22 07:38 MCV 93.6 fl (80-94) 05/08/22 07:38 MCH 31.8 pg (28.0-34.0) 05/08/22 07:38 MCHC 34.0 g/dL (30.0-36.0) 05/08/22 07:38 RDW 13.5 % (12.1-15.1) 05/08/22 07:38 Plt Count 254 10^3/cmm (130-400) 05/08/22 07:38 MPV 9.7 fL (7.4-10.4) 05/08/22 07:38 Neut % (Auto) 51.2 % 05/08/22 07:38 Lymph % (Auto) 36.0 % 05/08/22 07:38 [place] % (Auto) 9.2 % 05/08/22 07:38 Eos % (Auto) 2.8 % 05/08/22 07:38 Baso % (Auto) 0.6 % 05/08/22 07:38 Neut # (Auto) 2.78 10^3/uL (1.8-7.7) 05/08/22 07:38 Lymph # (Auto) 2.0 10^3/uL (0.8-4.8) 05/08/22 07:38 [place] # (Auto) 0.5 10^3/uL (0.2-0.9) 05/08/22 07:38 Eos # (Auto) 0.2 10^3/uL (0.0-0.8) 05/08/22 07:38 Baso # (Auto) 0.0 10^3/uL (0.0-0.1) 05/08/22 07:38 Nucleated RBC % (auto) 0 % 05/08/22 07:38 Nucleated RBCs # 0.0 /100WBC 05/08/22 07:38 Sodium 142 mmol/L (136-145) 05/08/22 07:38 Potassium 4.2 mmol/L (3.5-5.1) 05/08/22 07:38 Chloride 103 mmol/L (98-107) 05/08/22 07:38 Carbon Dioxide 25 mmol/L (22-29) 05/08/22 07:38 Anion Gap 18.2 (5-19) 05/08/22 07:38 BUN 11 mg/dL (8-23) 05/08/22 07:38 Creatinine 0.8 mg/dL (0.7-1.2) 05/08/22 07:38 GFR Calculation Not Reportable 05/08/22 07:38 Glucose 106 mg/dL (65-115) 05/08/22 07:38 Calculated Osmolality 294 mOsm/kg (285-295) 05/08/22 07:38 Calcium 9.8 mg/dL (8.5-10.5) 05/08/22 07:38 Total Bilirubin 0.9 mg/dL (0.15-1.2) 05/08/22 07:38 AST 16 U/L (0-40) 05/08/22 07:38 ALT 17 U/L (0-41) 05/08/22 07:38 Alkaline Phosphatase 94 U/L (40-130) 05/08/22 07:38 Total Protein 7.4 g/dL (6.6-8.7) 05/08/22 07:38 Albumin 4.9 g/dL (3.5-5.2) 05/08/22 07:38 Globulin 2.5 g/dL (1.3-4.6) 05/08/22 07:38 Lipase 32 U/L (13-60) 05/08/22 07:38 Urine Color Yellow (Yellow) 05/08/22 08:10 Urine Appearance Clear (CLEAR) 05/08/22 08:10 Urine pH 8 (5-7) H 05/08/22 08:10 Ur Specific [place] 1.020 (1.005-1.030) 05/08/22 08:10 Urine Protein Neg (Negative) 05/08/22 08:10 Urine Glucose (UA) Norm (Normal) 05/08/22 08:10 Urine Ketones Negative (Negative) 05/08/22 08:10 Urine Blood Neg (Negative) 05/08/22 08:10 Urine Nitrate Negative (Negative) 05/08/22 08:10 Urine Bilirubin Neg (Negative) 05/08/22 08:10 Prot Sulfosalicylic Acd Negative (Negative) 05/08/22 08:10 Urine Urobilinogen Norm mg/dL (Negative) 05/08/22 08:10 Ur Leukocyte Esterase Negative (Negative) 05/08/22 08:10 Discharge Plan Discharge Patient Disposition: Home Clinical Impression: Right flank pain Condition: Stable Prescriptions: New ibuprofen 800 mg tablet 800 mg PO Q8H PRN (Reason: pain) Qty: 20 0RF methocarbamol 750 mg tablet 750 mg PO Q8H PRN (Reason: Pain and muscle spasms) Qty: 15 0RF No Action lisinopril 20 mg tablet 20 mg PO DAILY silver sulfadiazine [Silvadene] 1 % cream 1 applic topical BID Qty: 20 0RF Rx Instructions: apply a 1.5 mm thickness fluconazole [Diflucan] 100 mg tablet 100 mg PO Q72H Qty: 2 0RF levothyroxine 150 mcg tablet 150 mcg PO DAILY Qty: 90 1RF multivitamin Tablet 1 tab PO QAM omega-3 fatty acids Capsule 1 cap PO QAM Prilosec OTC 20 mg Tablet,Delayed Release (Dr/Ec) 20 mg PO QAM Discharge Orders: Discharge ED (Routine); Ordered 05/08/22 Ordered By: Gómez Chen Referrals: Gómez Barrett MD [Primary Care Provider] - Discharge Diet: Regular Discharge Activity: Increase activity as tolerated Patient Instructions: Flank Pain (ED) Activity Restrictions/Additional Instructions: Follow-up with medical provider as directed in the next 5 to 7 days for reevaluation. Take medications as prescribed. Return to the ER or your medical provider if condition worsens. Please read and understand discharge instructions. Thank you for choosing [facility] for your healthcare needs today. Please realize this is an emergency room and that we are providing you with a medical screening exam and this may not be complete and all inclusive of all the testing and or work up that you may need to determine your ailment or severity of your illness. It is very important that you follow up as instructed or that you return to the Emergency Department should you have concerns or if your condition changes or worsens in any way. Coding Level of Care Code ED International Project Manager for Chg Fwd Exam Comprehensive Documented by User: Chucky Sheldon DO 05/09/22 10:09 HPI - Male Genitourinary General: Chief complaint: Urogenital-Male Stated complaint: urinary pain Time Seen by Provider: 05/08/22 07:20 [facility] ED PFSH: Medical History Fracture of left leg s/p 2 screws in lower left leg HTN (hypertension) Hypothyroidism Surgical History History of hernia repair Bilateral inguinal hernia repair History of prostatectomy Hx of cataract extraction Hx of tonsillectomy No significant past surgical history Family History Denies family history of Family history of premature coronary artery disease Social History Smoking and tobacco status: never smoked Alcohol intake: never Marital status: Additional social history: 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 Patient has a history of kidney stones and says this pain seems like his past kidney stones. Pain originally started about 2 weeks ago and was more mild. Pain worsened approximately 2 days ago and has not improved. He rates his current pain a 8 out of 10. Denies any fevers, emesis, dysuria or hematuria. Vital stable. Exam shows some mild right CVA tenderness. Rest of exam is benign. CBC and CMP are unremarkable. UA unremarkable and shows no blood in urine. CT of abdomen pelvis shows no acute findings. Patient's pain was controlled with a dose of IV morphine. He was comfortable and stable for discharge home. He was diagnosed with right flank pain, which is likely muscular after ruling out acute causes such as UTI, kidney stones or bowel obstruction. discharged home with a prescription for muscle relaxer and NSAID to help treat symptoms. Told to follow-up with PCP in the next week for reevaluation. Return to ED precautions given. Patient understood and agreed with plan. Chart reviewed and patient discussed with midlevel. Agree with assessment and plan. Lab Data 05/08/22 07:38 05/08/22 07:38 Radiology Impressions Abdomen/Pelvis CT 05/08/22 07:25 IMPRESSION: No acute findings. COMMENTS: Consistent with the [place] [employer]'s Incidental Findings Committee white paper (J Am Carlitos Radiol 2018): Any incidental renal lesion less than 1 cm or classified as too small to characterize, or any incidental cystic renal lesion characterized as simple-appearing, is likely benign. No follow-up imaging is recommended for these lesions per consensus recommendations based on imaging criteria. Laboratory Results WBC 5.4 10^3/uL (4.0-10.0) 05/08/22 07:38 RBC 4.84 10^6/uL (4.1-5.3) 05/08/22 07:38 Hgb 15.4 g/dL (11.7-16.6) 05/08/22 07:38 Hct 45.3 % (42.0-52.0) 05/08/22 07:38 MCV 93.6 fl (80-94) 05/08/22 07:38 MCH 31.8 pg (28.0-34.0) 05/08/22 07:38 MCHC 34.0 g/dL (30.0-36.0) 05/08/22 07:38 RDW 13.5 % (12.1-15.1) 05/08/22 07:38 Plt Count 254 10^3/cmm (130-400) 05/08/22 07:38 MPV 9.7 fL (7.4-10.4) 05/08/22 07:38 Neut % (Auto) 51.2 % 05/08/22 07:38 Lymph % (Auto) 36.0 % 05/08/22 07:38 [place]mer % (Auto) 9.2 % 05/08/22 07:38 Eos % (Auto) 2.8 % 05/08/22 07:38 Baso % (Auto) 0.6 % 05/08/22 07:38 Neut # (Auto) 2.78 10^3/uL (1.8-7.7) 05/08/22 07:38 Lymph # (Auto) 2.0 10^3/uL (0.8-4.8) 05/08/22 07:38 [place] # (Auto) 0.5 10^3/uL (0.2-0.9) 05/08/22 07:38 Eos # (Auto) 0.2 10^3/uL (0.0-0.8) 05/08/22 07:38 Baso # (Auto) 0.0 10^3/uL (0.0-0.1) 05/08/22 07:38 Nucleated RBC % (auto) 0 % 05/08/22 07:38 Nucleated RBCs # 0.0 /100WBC 05/08/22 07:38 Sodium 142 mmol/L (136-145) 05/08/22 07:38 Potassium 4.2 mmol/L (3.5-5.1) 05/08/22 07:38 Chloride 103 mmol/L (98-107) 05/08/22 07:38 Carbon Dioxide 25 mmol/L (22-29) 05/08/22 07:38 Anion Gap 18.2 (5-19) 05/08/22 07:38 BUN 11 mg/dL (8-23) 05/08/22 07:38 Creatinine 0.8 mg/dL (0.7-1.2) 05/08/22 07:38 GFR Calculation Not Reportable 05/08/22 07:38 Glucose 106 mg/dL (65-115) 05/08/22 07:38 Calculated Osmolality 294 mOsm/kg (285-295) 05/08/22 07:38 Calcium 9.8 mg/dL (8.5-10.5) 05/08/22 07:38 Total Bilirubin 0.9 mg/dL (0.15-1.2) 05/08/22 07:38 AST 16 U/L (0-40) 05/08/22 07:38 ALT 17 U/L (0-41) 05/08/22 07:38 Alkaline Phosphatase 94 U/L (40-130) 05/08/22 07:38 Total Protein 7.4 g/dL (6.6-8.7) 05/08/22 07:38 Albumin 4.9 g/dL (3.5-5.2) 05/08/22 07:38 Globulin 2.5 g/dL (1.3-4.6) 05/08/22 07:38 Lipase 32 U/L (13-60) 05/08/22 07:38 Urine Color Yellow (Yellow) 05/08/22 08:10 Urine Appearance Clear (CLEAR) 05/08/22 08:10 Urine pH 8 (5-7) H 05/08/22 08:10 Ur Specific [place] 1.020 (1.005-1.030) 05/08/22 08:10 Urine Protein Neg (Negative) 05/08/22 08:10 Urine Glucose (UA) Norm (Normal) 05/08/22 08:10 Urine Ketones Negative (Negative) 05/08/22 08:10 Urine Blood Neg (Negative) 05/08/22 08:10 Urine Nitrate Negative (Negative) 05/08/22 08:10 Urine Bilirubin Neg (Negative) 05/08/22 08:10 Prot Sulfosalicylic Acd Negative (Negative) 05/08/22 08:10 Urine Urobilinogen Norm mg/dL (Negative) 05/08/22 08:10 Ur Leukocyte Esterase Negative (Negative) 05/08/22 08:10 Discharge Plan Discharge Patient Disposition: Home Clinical Impression: Right flank pain Condition: Stable Prescriptions: New ibuprofen 800 mg tablet 800 mg PO Q8H PRN (Reason: pain) Qty: 20 0RF methocarbamol 750 mg tablet 750 mg PO Q8H PRN (Reason: Pain and muscle spasms) Qty: 15 0RF No Action lisinopril 20 mg tablet 20 mg PO DAILY silver sulfadiazine [Silvadene] 1 % cream 1 applic topical BID Qty: 20 0RF Rx Instructions: apply a 1.5 mm thickness fluconazole [Diflucan] 100 mg tablet 100 mg PO Q72H Qty: 2 0RF levothyroxine 150 mcg tablet 150 mcg PO DAILY Qty: 90 1RF multivitamin Tablet 1 tab PO QAM omega-3 fatty acids Capsule 1 cap PO QAM Prilosec OTC 20 mg Tablet,Delayed Release (Dr/Ec) 20 mg PO QAM Discharge Orders: Discharge ED (Routine); Ordered 05/08/22 Ordered By: Gómez Chen Referrals: Gómez Barrett MD [Primary Care Provider] - Discharge Diet: Regular Discharge Activity: Increase activity as tolerated Patient Instructions: Flank Pain (ED) Activity Restrictions/Additional Instructions: Follow-up with medical provider as directed in the next 5 to 7 days for reevaluation. Take medications as prescribed. Return to the ER or your medical provider if condition worsens. Please read and understand discharge instructions. Thank you for choosing [facility] for your healthcare needs today. Please realize this is an emergency room and that we are providing you with a medical screening exam and this may not be complete and all inclusive of all the testing and or work up that you may need to determine your ailment or severity of your illness. It is very important that you follow up as instructed or that you return to the Emergency Department should you have concerns or if your condition changes or worsens in any way. Coding Level of Care Code ED International Project Manager for Cas Fwd Exam Comprehensive
[2022-05-08 07:57] LABS: Basophils % 0.6 %; Eosinophils # 0.2 10^3/uL (0.0-0.8); Eosinophils % 2.8 %; Hematocrit 45.3 % (42.0-52.0); Hemoglobin 15.4 g/dL (11.7-16.6); Mean Corpuscular Hemoglobin 31.8 pg (28.0-34.0); Mean Corpuscular Volume 93.6 fl (80-94); Mean Platelet Volume 9.7 fL (7.4-10.4); Monocytes # 0.5 10^3/uL (0.2-0.9); Monocytes % 9.2 %; Neutrophils # 2.78 10^3/uL (1.8-7.7); Neutrophils % 51.2 %; Nucleated Red Blood Cells % 0 %; Platelet Count 254 10^3/cmm (130-400); Red Blood Count 4.84 10^6/uL (4.1-5.3); Red Cell Distribution Width 13.5 % (12.1-15.1); White Blood Count 5.4 10^3/uL (4.0-10.0)
[2022-05-08 08:06] LABS: Alanine Aminotransferase 17 U/L (0-41); Albumin Level 4.9 g/dL (3.5-5.2); Alkaline Phosphatase 94 U/L (40-130); Anion Gap 18.2 (5-19); Aspartate Amino Transferase 16 U/L (0-40); Blood Urea Nitrogen 11 mg/dL (8-23); Calcium 9.8 mg/dL (8.5-10.5); Carbon Dioxide 25 mmol/L (22-29); Chloride 103 mmol/L (98-107); Globulin 2.5 g/dL (1.3-4.6); Glucose 106 mg/dL (65-115); Lipase 32 U/L (13-60); Osmolality Calculated 294 mOsm/kg (285-295); Potassium 4.2 mmol/L (3.5-5.1); Sodium 142 mmol/L (136-145); Total Bilirubin 0.9 mg/dL (0.15-1.2); Total Protein 7.4 g/dL (6.6-8.7)
[2022-05-08] MEDS: sodium chloride 0.9% 500 ML 999 ML IV (08:07)
[2022-05-08 08:09] VITALS: RESP 18
[2022-05-08] MEDS: morphine 4 mg/mL SDV 1 mL IVP (08:09)
[2022-05-08] MEDS: ondansetron 2 mg/ML SDV 2 mL 4 MG IVP (08:09)
[2022-05-08 08:19] VITALS: BP 139/77; PULSE 62; O2SAT 94
[2022-05-08 08:30] VITALS: BP 139/77; PULSE 61; O2SAT 96
[2022-05-08 08:30] LABS: Add Urine Microscopic? NO; Charge for UA Resulting for Rev
[2022-05-08 09:00] VITALS: PULSE 59; O2SAT 96
[2022-05-08 09:00] LABS: Bilirubin Urine Neg (Negative); Blood Urine Neg (Negative); Glucose Urine UA Norm (Normal); Ketones Urine Negative (Negative); Leukocyte Esterase Urine Negative (Negative); Nitrate Urine Negative (Negative); Protein Urine Neg (Negative); Sulfosalicylic Acid Urine Negative (Negative); Urine Appearance Clear (CLEAR); Urine Color Yellow (Yellow); Urobilinogen Urine Norm (Negative); pH Urine 8 (5-7)
[2022-05-08] MEDS: orphenadrine 30 mg/mL Inj 2 mL 60 MG IVP (10:14)
[2022-05-08] MEDS: ketorolac 30 mg/mL INJ IVP (10:14)
[2022-05-08 10:16] VITALS: BP 145/92; PULSE 55; O2SAT 97
== END 2022-05-08 10:46 | disposition home or self-care (01) ==
PROVIDERS: Emergency Provider Physician Assistant; PCP Family Medicine
DX: R10.9 Unspecified abdominal pain (principal); I10 Essential (primary) hypertension
CPT/HCPCS: 74176; 80053; 81003; 83690; 85025; 96361; 96374; 96375; 99285; J1885; J2270; J2360; J2405; J7040

== ENCOUNTER → 2022-11-01 09:18 | Outpatient (BNVA) | payer MEDICARE, OTHER, SELFPAY | PROVIDERS: PCP Family Medicine; Visit Provider Podiatrist Foot & Ankle Surgery | DX: L60.0 Ingrowing nail (principal) | CPT/HCPCS: 11750 ==

== ENCOUNTER → 2022-11-07 08:43 | Outpatient (BNVA) | payer MEDICARE, OTHER, SELFPAY | PROVIDERS: PCP Family Medicine; Visit Provider Family Medicine | DX: Z51.81 Encounter for therapeutic drug level monitoring (principal); E03.9 Hypothyroidism, unspecified; I10 Essential (primary) hypertension; Z13.220 Encounter for screening for lipoid disorders; R73.09 Other abnormal glucose; R35.0 Frequency of micturition | CPT/HCPCS: 80053; 80061; 83036; 84153; 84439; 84443; 85025 ==

== ENCOUNTER → 2022-11-15 11:02 | Outpatient (BNVA) | payer MEDICARE, OTHER, SELFPAY | PROVIDERS: PCP Family Medicine; Visit Provider Podiatrist Foot & Ankle Surgery | DX: L60.0 Ingrowing nail (principal) | CPT/HCPCS: 99213 ==

== ENCOUNTER → 2022-11-20 10:08 | Outpatient (BNVA) | payer MEDICARE, OTHER, SELFPAY | PROVIDERS: PCP Family Medicine; Visit Provider Surgery | DX: R22.9 Localized swelling, mass and lump, unspecified (principal) | CPT/HCPCS: 99203 ==

== ENCOUNTER → 2022-12-06 10:53 | Outpatient (BNVA) | payer MEDICARE, OTHER, SELFPAY | PROVIDERS: Visit Provider Surgery | DX: R22.2 Localized swelling, mass and lump, trunk (principal) | CPT/HCPCS: 10040; 88304; 88307; 99214 ==

== ENCOUNTER → 2022-12-18 10:32 | Outpatient (BNVA) | payer MEDICARE, OTHER, SELFPAY | PROVIDERS: PCP Family Medicine; Visit Provider Surgery | DX: R22.9 Localized swelling, mass and lump, unspecified (principal) | CPT/HCPCS: 99213 ==

== ENCOUNTER 2022-12-24 06:51 | Outpatient (RCR) | payer MEDICARE, OTHER, SELFPAY | END 2022-12-27 23:59 | disposition home or self-care (01) | LOC: SPT 06:51 | PROVIDERS: PCP Family Medicine; Visit Provider Family Medicine | DX: M25.512 Pain in left shoulder (principal); M25.511 Pain in right shoulder | CPT/HCPCS: 97110; 97162; 99213 ==

== ENCOUNTER 2022-12-28 06:00 | Outpatient (RCR) | payer MEDICARE, OTHER, SELFPAY | END 2023-01-24 23:59 | disposition home or self-care (01) | LOC: SPT 06:00 | PROVIDERS: PCP Family Medicine; Visit Provider Family Medicine | DX: M25.512 Pain in left shoulder (principal); M25.511 Pain in right shoulder | CPT/HCPCS: 97110 ==

== ENCOUNTER → 2023-02-07 08:39 | Outpatient (BNVA) | payer MEDICARE, OTHER, SELFPAY | PROVIDERS: PCP Family Medicine; Visit Provider Family Medicine | DX: E11.9 Type 2 diabetes mellitus without complications (principal); R73.03 Prediabetes; R73.09 Other abnormal glucose | CPT/HCPCS: 83036 ==

== ENCOUNTER 2023-12-25 07:27 | Outpatient (RCR) | payer MEDICARE, SELFPAY | END 2023-12-28 18:00 | disposition home or self-care (01) | LOC: SPT 07:27 | PROVIDERS: PCP Family Medicine; Visit Provider Chiropractor | DX: R42 Dizziness and giddiness (principal) | CPT/HCPCS: 95992; 97161 ==

== ENCOUNTER 2023-12-29 06:00 | Outpatient (RCR) | payer MEDICARE, SELFPAY | END 2024-01-27 23:59 | disposition home or self-care (01) | LOC: SPT 06:00 | PROVIDERS: PCP Family Medicine; Visit Provider Chiropractor | DX: R42 Dizziness and giddiness (principal) | CPT/HCPCS: 95992 ==